=== PATIENT | male | born 1960 | race Caucasian/White ===

== ENCOUNTER 2021-05-19 08:51 | Inpatient (IN) | payer MEDICAID ==
[~2021-05-19] VITALS: Ht 170.2 cm; Wt 106.8 kg
[2021-05-19] MEDS ORDERED: heparin 25,000 UNIT/250ml bag 250 ML IV SCH (09:10)
[2021-05-19] MEDS: heparin 25,000 UNIT/250ml bag 250 ML IV SCH ×2 (09:21→22:17)
--- NOTE | 2021-05-19 09:34 | NUR ---
dr. mckeon at bedside.
[2021-05-19 09:48] LABS: BASOPHILS % (AUTO) 0.3 % (0-1); EOSINOPHILS % (AUTO) 0.1 % (0-6); HEMATOCRIT 47.3 % (42.0-52.0); HEMOGLOBIN 15.4 g/dl (14.0-17.9); LYMPHOCYTES # (AUTO) 0.7 X10'3 (1.1-4.8); LYMPHOCYTES % (AUTO) 6.2 % (21-51); MEAN CORPUSCULAR HEMOGLOBIN 28.7 PG (27.0-31.0); MEAN CORPUSCULAR HGB CONC 32.6 g/dL (33.0-36.5); MEAN PLATELET VOLUME 6.5 FL (7.4-10.4); MONOCYTES # (AUTO) 0.8 X10'3 (0-0.9); MONOCYTES % (AUTO) 6.5 % (2-12); NEUTROPHILS # (AUTO) 10.1 X10'3 (1.8-7.7); NEUTROPHILS % (AUTO) 86.9 % (42-75); PLATELET COUNT 273 X10'3 (140-440); RED BLOOD COUNT 5.38 X10'6 (4.70-6.10); RED CELL DISTRIBUTION WIDTH 15.1 % (11.5-14.5); WHITE BLOOD COUNT 11.6 X10'3 (4.5-11.0)
[2021-05-19 10:07] LABS: ALANINE AMINOTRANSFERASE 21 U/L (12-78); ALBUMIN 3.1 G/DL (3.4-5.0); ALBUMIN/GLOBULIN RATIO 0.7 (1.1-1.5); ANION GAP 6 (8-16); ASPARTATE AMINO TRANSFERASE 19 U/L (10-37); BILIRUBIN,TOTAL 0.7 MG/DL (0.1-1.0); BLOOD UREA NITROGEN 21 MG/DL (7-18); BUN/CREATININE RATIO 21.2 (5.4-32.0); CALCIUM 8.3 MG/DL (8.5-10.1); CHLORIDE 105 MMOL/L (99-107); CREATININE 0.99 MG/DL (0.60-1.10); GLUCOSE 132 MG/DL (70-104); POTASSIUM 4.2 MMOL/L (3.5-5.1); SODIUM 140 MMOL/L (135-145); TOTAL CARBON DIOXIDE 28.8 MMOL/L (24-32); TOTAL PROTEIN 7.5 G/DL (6.4-8.2); eGFR 77 ML/MIN
[2021-05-19 10:46] LABS: ANISOCYTOSIS FEW; ELLIPTOCYTES FEW; PLATELET ESTIMATE NORMAL; TOTAL CELLS COUNTED 100; TOXIC GRANULATION 1+
[2021-05-19 11:11] LABS: ALKALINE PHOSPHATASE 79 IU/L (46-116)
[2021-05-19] MEDS ORDERED: METO-395 PO (12:48)
[2021-05-19] MEDS ORDERED: MONT10TA21 PO (12:48)
[2021-05-19] MEDS ORDERED: HYDR12.55 PO (12:48)
[2021-05-19] MEDS ORDERED: BENA20TA2 PO (12:48)
[2021-05-19] MEDS ORDERED: HYDROcodone/acetaminophen 10/325mg tab PO PRN (14:45)
[2021-05-19] MEDS ORDERED: ondansetron/PF 4mg/2ml inj IV PRN (14:45)
[2021-05-19] MEDS ORDERED: PERFLUTREN PROTEIN-A MICROSPHR (Optison) 0.22 MG/ML 3ML VIAL IV ONE (14:45)
[2021-05-19] MEDS ORDERED: potassium Cl 20 mEq SR tablet PO PRN ×2 (14:45)
[2021-05-19] MEDS ORDERED: potassium CL 10mEq/100ml bag 100 ML IV PRN (14:45)
[2021-05-19] MEDS ORDERED: acetaminophen 650mg rectal suppository RC PRN (14:45)
[2021-05-19] MEDS ORDERED: bisacodyl 10mg suppository rectal RC PRN (14:45)
[2021-05-19] MEDS ORDERED: morphine 2 MG/ML inj. syringe IV PRN ×2 (14:45)
[2021-05-19] MEDS ORDERED: diphenhydrAMINE 25mg capsule PO PRN (14:45)
[2021-05-19] MEDS ORDERED: magnesium hydroxide 30ml (MOM) UD suspension PO PRN (14:45)
[2021-05-19] MEDS ORDERED: magnesium 2GM in 50ml NS 50 ML IV PRN (14:45)
[2021-05-19] MEDS ORDERED: mag hydrox/Alum hydrox/simeth 30ml oral suspension PO PRN (14:45)
[2021-05-19] MEDS ORDERED: HYDROcodone/acetaminophen 5mg/325mg tablet PO PRN (14:45)
[2021-05-19] MEDS: normal saline 1000ml 1,000 ML IV SCH (14:45)
[2021-05-19] MEDS ORDERED: magnesium 4gm in 100ml NS 100 ML IV PRN (14:45)
[2021-05-19] MEDS ORDERED: magnesium Cl slow-release 64mg tablet PO PRN (14:45)
[2021-05-19] MEDS ORDERED: acetaminophen 325mg tablet PO PRN ×2 (14:45)
[2021-05-19 15:13] LABS: HEMOGLOBIN A1C 6.1 % (4.5-6.2)
[2021-05-19 18:00] VITALS: BP_SYST 143; BP_SYST 176; BP_DIAS 74; BP_DIAS 86
--- NOTE | 2021-05-19 18:32 | NUR ---
Sent pg to RT re breathing treatment for pt
[2021-05-19] MEDS: K and/or MAG REPLACEMENT MC SCH (19:04)
[2021-05-19] MEDS: docusate sod 100mg capsule PO SCH (19:22)
[2021-05-19] MEDS: LORazepam 0.5 MG tablet PO PRN (19:22)
[2021-05-19] MEDS ORDERED: albuterol 2.5 MG/3 ML nebule NEB PRN (20:10)
[2021-05-19] MEDS: CefTRIAXone/D5W-Rocephin 1gm 50 ML IV SCH (20:50)
[2021-05-19] MEDS ORDERED: methylPREDNISolone sod succ 125mg/2ml vial IV ONE (20:50)
[2021-05-19] MEDS: azithromycin 250mg tablet PO SCH (21:05)
[2021-05-19 22:00] VITALS: BP 149/78
[2021-05-19 23:30] LABS: APTT 42 SECONDS (22-32)
[2021-05-19] MEDS ORDERED: hydrALAZINE 20mg/ml inj. IV PRN (23:30)
[2021-05-20] VITALS (7 sets, daily range): BP systolic 105–178; BP diastolic 64–76
[2021-05-20] MEDS: heparin 10,000 units/1 ML INJ IV PRN ×2 (00:11→23:44)
[2021-05-20 03:17] LABS: ALANINE AMINOTRANSFERASE 18 U/L (12-78); ALBUMIN 3.1 G/DL (3.4-5.0); ALBUMIN/GLOBULIN RATIO 0.8 (1.1-1.5); ANION GAP 11 (8-16); ASPARTATE AMINO TRANSFERASE 20 U/L (10-37); BASOPHILS # (AUTO) 0.1 X10'3 (0-0.2); BASOPHILS % (AUTO) 0.5 % (0-1); BILIRUBIN,TOTAL 0.4 MG/DL (0.1-1.0); BLOOD UREA NITROGEN 30 MG/DL (7-18); BUN/CREATININE RATIO 26.5 (5.4-32.0); CALCIUM 8.2 MG/DL (8.5-10.1); CHLORIDE 105 MMOL/L (99-107); CHOL/HDL RATIO 3.1 (0.00-4.99); CHOLESTEROL 157 MG/DL (0-200); CREATININE 1.13 MG/DL (0.60-1.10); EOSINOPHILS % (AUTO) 0 % (0-6); GLUCOSE 161 MG/DL (70-104); HDL CHOLESTEROL 51 MG/DL (35-60); HEMATOCRIT 45.7 % (42.0-52.0); LDL CHOLESTEROL 95 MG/DL (50-100); LYMPHOCYTES # (AUTO) 0.6 X10'3 (1.1-4.8); MAGNESIUM 1.9 MG/DL (1.5-2.4); MEAN CORPUSCULAR HEMOGLOBIN 28.8 PG (27.0-31.0); MEAN CORPUSCULAR HGB CONC 32.9 g/dL (33.0-36.5); MEAN CORPUSCULAR VOLUME 87.4 FL (78-98); MEAN PLATELET VOLUME 6.7 FL (7.4-10.4); MONOCYTES # (AUTO) 0.4 X10'3 (0-0.9); MONOCYTES % (AUTO) 2.4 % (2-12); NEUTROPHILS # (AUTO) 14.4 X10'3 (1.8-7.7); NEUTROPHILS % (AUTO) 93.1 % (42-75); PHOSPHORUS 3.6 MG/DL (2.3-4.5); PLATELET COUNT 277 X10'3 (140-440); POTASSIUM 4.2 MMOL/L (3.5-5.1); RED BLOOD COUNT 5.23 X10'6 (4.70-6.10); SODIUM 140 MMOL/L (135-145); TOTAL CARBON DIOXIDE 24.4 MMOL/L (24-32); TOTAL PROTEIN 7.1 G/DL (6.4-8.2); TRIGLYCERIDES 43 MG/DL (20-135); WHITE BLOOD COUNT 15.5 X10'3 (4.5-11.0); eGFR 66 ML/MIN
--- NOTE | 2021-05-20 03:43 | NUR ---
Lynne called from lab for ptt result that is 139. Unfortunately, ptt drawn to early. There was an ptt collected at 05/19/21 at 10 pm. Result received at 0030. So the next ptt is do at 0630 am. No change was made. waiting fro the next ptt to be collected at 0630 am.
[2021-05-20] MEDS: normal saline 1000ml 1,000 ML IV SCH ×2 (04:05→15:56)
--- NOTE | 2021-05-20 06:51 | NUR ---
Patient in room PCU 3026. I have received report from Kenia and had the opportunity to ask questions and assume patient care.
[2021-05-20] MEDS: K and/or MAG REPLACEMENT MC SCH ×2 (07:31→20:00)
[2021-05-20] MEDS: methylPREDNISolone sod succ 125mg/2ml vial IV SCH ×4 (07:57→23:27)
[2021-05-20] MEDS: lisinopril 20mg tablet PO SCH (07:58)
[2021-05-20] MEDS: LORazepam 0.5 MG tablet PO PRN ×3 (07:58→23:27)
[2021-05-20] MEDS: docusate sod 100mg capsule PO SCH ×2 (07:59→19:51)
[2021-05-20] MEDS: azithromycin 250mg tablet PO SCH (07:59)
[2021-05-20] MEDS: CefTRIAXone/D5W-Rocephin 1gm 50 ML IV SCH (07:59)
[2021-05-20] MEDS: HYDROchlorothiazide 12.5mg capsule PO SCH (07:59)
[2021-05-20] MEDS: montelukast 10mg tablet PO SCH (07:59)
[2021-05-20] MEDS ORDERED: metoprolol succinate 25mg (24-HOUR) SR. Tablet PO SCH (08:00)
[2021-05-20 12:53] LABS: CLARITY,URINE CLEAR (Clear); COLOR,URINE YELLOW (Yellow); GLUCOSE, URINE NEGATIVE (Neg); KETONES,URINE NEGATIVE (Neg); LEUKOCYTE ESTERASE ,URINE NEGATIVE (Neg); NITRITES, URINE NEGATIVE (Neg); OCCULT BLOOD,URINE NEGATIVE (Neg); PH,URINE 5.5 (4.8-8.0); PROTEIN,URINE NEGATIVE (Neg); UROBILINOGEN,URINE 0.2 E.U/dL (0.2-1.0)
[2021-05-20 12:56] LABS: UA COLLECTION TYPE URINAL
[2021-05-20 12:58] LABS: URINE AMPHETAMINE SCREEN POSITIVE (Neg); URINE BARBITUATE SCREEN NEGATIVE (Neg); URINE BENZODIAZEPINES SCREEN NEGATIVE (Neg); URINE CANNABINOID SCREEN NEGATIVE (Neg); URINE COCAINE SCREEN NEGATIVE (Neg); URINE METHADONE SCREEN NEGATIVE (Neg); URINE OPIATE SCREEN NEGATIVE (Neg); URINE PHENCYCLIDINE SCREEN NEGATIVE (Neg)
[2021-05-20] MEDS ORDERED: aminophylline 250mg/10ml inj. IV PRN (13:50)
[2021-05-20] MEDS ORDERED: metoprolol tartrate 1mg/ml inj IV PRN (13:50)
[2021-05-20] MEDS ORDERED: regadenoson 0.4mg/5ml syringe IV PRN (13:50)
[2021-05-20] MEDS ORDERED: nitroGLYCERIN 0.4mg SUBLingual tab SL PRN (13:50)
--- NOTE | 2021-05-20 15:05 | NUR ---
PTT was 48 and therapeutic no rate changes. Will recheck in Q6
--- NOTE | 2021-05-20 18:42 | NUR ---
Problems reprioritized. Patient report given, questions answered & plan of care reviewed with Kenia.
[2021-05-20] MEDS: heparin 25,000 UNIT/250ml bag 250 ML IV SCH (18:47)
[2021-05-20 23:03] LABS: APTT 38 SECONDS (22-32)
[2021-05-21] VITALS (9 sets, daily range): BP systolic 131–168; BP diastolic 59–107
--- NOTE | 2021-05-21 06:30 | NUR ---
Patient in room PCU 3026. I have received report from Kenia PIEDRA and had the opportunity to ask questions and assume patient care. Patient is up ambulatory this AM, pending Lexiscan. Patient is anxious and seems worried. Also has inhaler bedside, but was insistent on keeping it with him. Advised that its hospital policy to not have inhaler or own medications at bedside and that it can increase anxiety. He is up self and has been walking the unit independently. All needs met at this time.
[2021-05-21 07:34] LABS: BASOPHILS % (AUTO) 0.1 % (0-1); EOSINOPHILS % (AUTO) 0 % (0-6); HEMATOCRIT 44.5 % (42.0-52.0); HEMOGLOBIN 14.5 g/dl (14.0-17.9); LYMPHOCYTES # (AUTO) 0.4 X10'3 (1.1-4.8); LYMPHOCYTES % (AUTO) 3.3 % (21-51); MEAN CORPUSCULAR HEMOGLOBIN 28.6 PG (27.0-31.0); MEAN CORPUSCULAR HGB CONC 32.6 g/dL (33.0-36.5); MEAN CORPUSCULAR VOLUME 87.9 FL (78-98); MEAN PLATELET VOLUME 6.8 FL (7.4-10.4); MONOCYTES # (AUTO) 0.4 X10'3 (0-0.9); MONOCYTES % (AUTO) 3.1 % (2-12); NEUTROPHILS # (AUTO) 11.7 X10'3 (1.8-7.7); NEUTROPHILS % (AUTO) 93.5 % (42-75); PLATELET COUNT 290 X10'3 (140-440); RED BLOOD COUNT 5.06 X10'6 (4.70-6.10); RED CELL DISTRIBUTION WIDTH 15.3 % (11.5-14.5); WHITE BLOOD COUNT 12.5 X10'3 (4.5-11.0)
[2021-05-21 07:42] LABS: APTT 64 SECONDS (22-32)
[2021-05-21] MEDS: docusate sod 100mg capsule PO SCH (08:00)
[2021-05-21] MEDS ORDERED: metoprolol succinate 25mg (24-HOUR) SR. Tablet PO SCH (08:00)
[2021-05-21] MEDS: K and/or MAG REPLACEMENT MC SCH (08:00)
[2021-05-21 08:12] LABS: ALANINE AMINOTRANSFERASE 20 U/L (12-78); ALBUMIN 3.1 G/DL (3.4-5.0); ALBUMIN/GLOBULIN RATIO 0.9 (1.1-1.5); ANION GAP 10 (8-16); ASPARTATE AMINO TRANSFERASE 13 U/L (10-37); BILIRUBIN,TOTAL 0.4 MG/DL (0.1-1.0); BLOOD UREA NITROGEN 27 MG/DL (7-18); CALCIUM 8.1 MG/DL (8.5-10.1); CHLORIDE 108 MMOL/L (99-107); CREATININE 0.93 MG/DL (0.60-1.10); GLUCOSE 154 MG/DL (70-104); MAGNESIUM 2.1 MG/DL (1.5-2.4); PHOSPHORUS 4.3 MG/DL (2.3-4.5); POTASSIUM 4.2 MMOL/L (3.5-5.1); SODIUM 141 MMOL/L (135-145); TOTAL CARBON DIOXIDE 23.2 MMOL/L (24-32); TOTAL PROTEIN 6.7 G/DL (6.4-8.2); eGFR 83 ML/MIN
[2021-05-21] MEDS: HYDROchlorothiazide 12.5mg capsule PO SCH (12:25)
[2021-05-21] MEDS: montelukast 10mg tablet PO SCH (12:26)
[2021-05-21] MEDS: azithromycin 250mg tablet PO SCH (12:26)
[2021-05-21] MEDS: lisinopril 20mg tablet PO SCH (12:26)
[2021-05-21] MEDS: methylPREDNISolone sod succ 125mg/2ml vial IV SCH ×2 (12:27→16:00)
[2021-05-21] MEDS: heparin 25,000 UNIT/250ml bag 250 ML IV SCH (12:29)
--- NOTE | 2021-05-21 13:41 | NUR ---
Page Accepted Message: Room 3021R: Luis Alberto Garcia: Zeus results are in. Patient would like to eat. Can I feed him? Huyen and Jazmin [phone]
[2021-05-21] MEDS ORDERED: ALBU8.5H17 INH (13:45)
[2021-05-21] MEDS ORDERED: APIX5TAB3 PO (13:45)
[2021-05-21] MEDS ORDERED: SPIR25TA5 PO (13:45)
[2021-05-21] MEDS ORDERED: PRED10TA23 PO (13:45)
[2021-05-21] MEDS ORDERED: BUDE10.22 INH (13:45)
[2021-05-21] MEDS ORDERED: CEFD300C3 PO (13:45)
[2021-05-21] MEDS ORDERED: FURO-150 PO (13:45)
[2021-05-21] MEDS ORDERED: apixaban 5mg tablet PO ONE (15:35)
[2021-05-21] MEDS: CefTRIAXone/D5W-Rocephin 1gm 50 ML IV SCH (17:01)
[2021-05-21] MEDS: LORazepam 0.5 MG tablet PO PRN (17:02)
--- NOTE | 2021-05-21 18:28 | NUR ---
Problems reprioritized. Patient report given, questions answered & plan of care reviewed with Eli PIEDRA.
--- NOTE | 2021-05-21 19:45 | NUR ---
Condition improved, patient discharged. Follow up instructions given. Vital signs: Temp 97.6, HR 62, RR 20, SpO2 94 on room air, BP 159/77, patient denies pain. IV line removed, site intact, catheter intact. Patient left unit in stable condition accompanied by hospital personnel.
== END 2021-05-21 19:40 | disposition home or self-care (01) | DRG 134 ==
LOC: ER 08:51 → ED HOLD 14:48 → PCU 3S 17:54
PROVIDERS: ADMIT Family Medicine; ATTEND Family Medicine
PROC: 4A02XM4 Measurement of Cardiac Total Activity, External Approach (ICD-10-PCS; principal; 2021-05-21)
PROC: 3E073KZ Introduction of Other Diagnostic Substance into Coronary Artery, Percutaneous Approach (ICD-10-PCS; 2021-05-21)
DX: I26.99 Other pulmonary embolism without acute cor pulmonale (principal); I21.4 Non-ST elevation (NSTEMI) myocardial infarction; J44.1 Chronic obstructive pulmonary disease with (acute) exacerbation; E66.01 Morbid (severe) obesity due to excess calories; I83.91 Asymptomatic varicose veins of right lower extremity; I82.411 Acute embolism and thrombosis of right femoral vein; I10 Essential (primary) hypertension; Z20.822 Contact with and (suspected) exposure to COVID-19; I82.461 Acute embolism and thrombosis of right calf muscular vein; I25.10 Atherosclerotic heart disease of native coronary artery without angina pectoris; F15.20 Other stimulant dependence, uncomplicated; Z91.19 Patient's noncompliance with other medical treatment and regimen; Z79.899 Other long term (current) drug therapy; Z68.36 Body mass index [BMI] 36.0-36.9, adult
CPT/HCPCS: 36415; 71250; 78452; 80053; 80061; 80305; 81003; 83036; 83735; 84100; 84145; 84484; 85007; 85025; 85610; 85730; 87081; 87635; 93005; 93017; 93306; 93970; 99285; A9500; G0378; J0696; J1644; J2785; J2930; J7030